=== PATIENT | female | born 1995 | race Caucasian/White ===

== ENCOUNTER 2020-02-04 16:47 | Emergency (ER) | payer MEDICAID, SELFPAY ==
[2020-02-04 17:16] VITALS: BP 105/66; PULSE 94; RESP 14; TEMP 36.5; O2SAT 98; BMI 28.5
--- NOTE | 2020-02-04 18:08 | ED_ITS ---
HPI - Abdominal Pain General: Chief Complaint: Abdominal Pain Stated Complaint: abd pain, preg x 15 weeks Time Seen by Provider: 02/04/20 17:57 Source: patient Mode of arrival: ambulatory Limitations: no limitations History of Present Illness: HPI narrative: 24-year-old female is currently 15 weeks states is been having left lower quadrant abdominal pains for last week to 2 weeks. States episodic in nature and very sharp. She denies any vaginal bleeding. Patient denies any vaginal discharge. This is her first . She has had no vomiting or diarrhea. States she currently has no pain at this point. MD elicited complaint: abdominal pain Associated Symptoms: Denies chills, dysuria and fever(s) Related Data: Date of Last Menstrual Period: 10/14/19 Review of Systems 2 Const: Denies: fever(s), chills, body aches or change in appetite Eyes: Denies: blurry vision or eye discomfort ENMT: Denies: throat pain or dental pain Card: Denies: chest pain Resp: Denies: dyspnea GI: Reports: abdominal pain : Denies: dysuria Musc: Denies: neck pain or back pain Skin/Breast: Denies: rash Neuro: Denies: headache(s) Psych: Denies: depression Ermias/Lymph: Denies: easy bruising All/Imm: Denies: urticaria [facility] Female Reproductive History: Date of last menstrual period: 10/14/19 Physical Exam Const: COMMON NORMALS: no acute distress, patient oriented x3 and healthy appearing HENMT: COMMON NORMALS: normocephalic and atraumatic HEAD & SCALP: normocephalic and atraumatic Eye: COMMON NORMALS: Equal, round and reactive pupils present and EOMs intact bilaterally PUPIL: Yes Equal, round and reactive pupils present Neck/C-Spine: COMMON NORMALS: full ROM and supple Chest: COMMONS NORMALS: normal inspection of the chest and normal palpation of entire chest wall Resp: COMMON NORMALS: normal respiratory effort, No retractions, No use of accessory muscles and clear to auscultation bilaterally AUSCULTATION: clear to auscultation bilaterally Cardio: COMMON NORMALS: regular rate, regular rhythm and No murmurs present (Cardio) RATE: regular rate RHYTHM: regular rhythm GI: COMMON NORMALS: Normal to inspection, nondistended, normoactive bowel sounds present, Soft to palpation, non-tender and no masses PALPATION: Yes Soft to palpation Extremity: COMMON NORMALS: normal to inspection and full ROM Neuro: COMMON NORMALS: patient oriented x3, moves all extremities and no focal motor deficits Psych: COMMON NORMALS: mental status grossly normal, Normal thought process present and cooperative THOUGHT PROCESS: Normal thought process present Skin: COMMON NORMALS: no rashes or lesions noted and no wounds GENERAL SKIN EXAM: no rashes or lesions noted Course Vital Signs: Vital signs: Vital Signs Temperature 97.7 F 02/04/20 17:16 Pulse Rate 94 02/04/20 17:16 Respiratory Rate 14 02/04/20 17:16 Blood Pressure 105/66 02/04/20 17:16 Pulse Oximetry 98 02/04/20 17:16 MDM - Abdominal Pain MDM Narrative: Medical decision making narrative: Patient presents here with left lower abdominal pain is likely round ligament pain. Patient also has UTI. We will treat her with Keflex. She is on Reglan at home. Patient's abdominal exam here is benign and bedside ultrasound showed an IUP consistent with dates with heart rate of 146. She is to follow-up with her OB in 2 to 4 days and return if worsening. Lab Data: Labs: Lab Results 02/04/20 Range/Units 17:55 Urine Color Yellow (Yellow) Urine Appearance Cloudy (CLEAR) Urine pH 6 (5-7) Ur Specific Gravit y 1.020 (1.005-1.030) Urine Protein Neg (Negative) Urine Glucose (UA) Norm (Normal) Urine Ketones Negative (Negative) Urine Blood Neg (Negative) Urine Nitrate Positive H (Negative) Urine Bilirubin Neg (NEGATIVE) Urine Urobilinogen Norm (Negative) mg/dL Ur Leukocyte [place] Negative (Negative) Amorphous Sediment Not Reportable Discharge Plan Discharge Patient Disposition: Home Clinical Impression: Abdominal pain Qualifiers: Abdominal location: left lower quadrant Qualified Code(s): R10.32 - Left lower quadrant pain Acute cystitis Qualifiers: Hematuria presence: without hematuria Qualified Code(s): N30.00 - Acute cystitis without hematuria Condition: Stable Prescriptions: New Keflex 500 mg capsule 500 mg PO Q8H 7 Days Qty: 21 RF: 0 Discharge Orders: Discharge Order (Routine); Ordered 02/04/20 Ordered By: Froilan Cardona Referrals: Trinh Hernandez DO [Primary Care Provider] - 1-3 days Discharge Diet: Advance as tolerated Discharge Activity: Resume usual activity Patient Instructions: Abdominal Pain (ED), Round Ligament Pain Coding Level of Care Code ED Partner Marketing Manager for Chg Fwd Exam Comprehensive
[2020-02-04] MEDS: acetaminophen 325 mg Tablet 650 MG PO (18:10)
[2020-02-04] MEDS: metoclopramide 10 mg Tablet PO (18:11)
[2020-02-04 18:14] LABS: Add Urine Microscopic? YES; Bilirubin Urine Neg (NEGATIVE); Blood Urine Neg (Negative); Glucose Urine UA Norm (Normal); Ketones Urine Negative (Negative); Leukocyte Esterase Urine Negative (Negative); Nitrate Urine Positive (Negative); Protein Urine Neg (Negative); Urine Appearance Cloudy (CLEAR); Urine Color Yellow (Yellow); Urobilinogen Urine Norm (Negative); pH Urine 6 (5-7)
[2020-02-04 18:30] LABS: Add Urine Culture? Yes; Bacteria Urine 4+; Squamous Epithelial Cell Urine 0-4 (0-5)
[2020-02-04 18:37] VITALS: BP 110/66; PULSE 94; RESP 14; TEMP 36.5; O2SAT 98
[2020-02-04] MEDS: cefTRIAXone 1,000 mg SDV 1000 MG IM (18:37)
== END 2020-02-04 18:39 | disposition home or self-care (01) ==
PROVIDERS: Emergency Provider Emergency Medicine; PCP Obstetrics & Gynecology
DX: O23.12 Infections of bladder in pregnancy, second trimester (principal); Z3A.15 15 weeks gestation of pregnancy
CPT/HCPCS: 12345; 81001; 87077; 87086; 87186; 96372; 99281; 99283; J0696; J8597

== ENCOUNTER 2021-09-24 22:01 | Emergency (ER) | payer MEDICAID, SELFPAY ==
[2021-09-24 22:32] VITALS: BP 132/81; PULSE 81; RESP 20; TEMP 36.8; O2SAT 98; BMI 30.4
[2021-09-24 23:55] LABS: HCG Qualitative Urine. Negative (Negative)
--- NOTE | 2021-09-24 23:58 | W.ED.FEMALGU ---
HPI - Female Genitourinary General: Chief complaint: Vaginal Bleeding Stated complaint: Dee birthcontrol is falling out Time Seen by Provider: 09/24/21 22:14 Source: patient Mode of arrival: ambulatory Limitations: no limitations History of Present Illness: 26-year-old female who states she had a Mirena placed 2 years ago. She states she is pulling out a tampon yesterday and felt one of the strings and feels like she is moved her Mirena she states she has had some pain since then and feels like she may have dislodged it. She said some slight bleeding no increase in bleeding denies any vomiting diarrhea denies any vaginal discharge. Associated symptoms: Deny abdominal pain, headache(s) or nausea Date of Last Menstrual Period: 10/14/19 Review of Systems Const: Denies: fever(s), chills, body aches or change in appetite Eyes: Denies: blurry vision or eye discomfort ENMT: Denies: throat pain or dental pain Card: Denies: chest pain Resp: Denies: dyspnea GI: Denies: abdominal pain, nausea, vomiting or diarrhea : Reports: vaginal bleeding Musc: Denies: neck pain or back pain Skin/Breast: Denies: rash Neuro: Denies: headache(s) Psych: Denies: depression Ermais/Lymph: Denies: easy bruising All/Imm: Denies: urticaria PFSH ED PFSH: Medical History (Updated 09/25/21 @ 00:48 by Froilan Cardona MD) No pertinent past medical history Social History Substance/Drug Use: unknown Female Reproductive History: Date of last menstrual period: 10/14/19 Physical Exam Const: COMMON NORMALS: no acute distress, patient oriented x3 and healthy appearing HENMT: COMMON NORMALS: normocephalic and atraumatic HEAD & SCALP: normocephalic and atraumatic Eye: COMMON NORMALS: Equal, round and reactive pupils present and EOMs intact bilaterally PUPIL: Yes Equal, round and reactive pupils present Neck/C-Spine: COMMON NORMALS: full ROM and supple Chest: COMMONS NORMALS: normal inspection of the chest and normal palpation of entire chest wall Resp: COMMON NORMALS: normal respiratory effort, No retractions, No use of accessory muscles and clear to auscultation bilaterally AUSCULTATION: clear to auscultation bilaterally Cardio: COMMON NORMALS: regular rate, regular rhythm and No murmurs present (Cardio) RATE: regular rate RHYTHM: regular rhythm GI: COMMON NORMALS: Normal to inspection, nondistended, normoactive bowel sounds present, Soft to palpation, non-tender and no masses PALPATION: Yes Soft to palpation : OTHER: Slight amount of blood in vaginal vault no active bleeding from cervix Mirena strings in place with no abnormality seen Extremity: COMMON NORMALS: normal to inspection and full ROM Neuro: COMMON NORMALS: patient oriented x3, moves all extremities and no focal motor deficits Psych: COMMON NORMALS: mental status grossly normal, Normal thought process present and cooperative THOUGHT PROCESS: Normal thought process present Skin: COMMON NORMALS: no rashes or lesions noted and no wounds GENERAL SKIN EXAM: no rashes or lesions noted Course Vital Signs: Vital signs: Vital Signs Temperature 98.2 F 09/24/21 22:32 Pulse Rate 81 09/24/21 22:32 Respiratory Rate 20 H 09/24/21 22:32 Blood Pressure 132/81 09/24/21 22:32 Pulse Oximetry 98 09/24/21 22:32 MDM - Female Medical Decision Making Patient presents with pelvic pain for actually months likely due to her Mirena she states she has had issues with her previous Mirena as I did explain to her that we could not take it out in the ER appears to be an appropriate place but we will get her referral with OB to have it removed she has no signs of cervicitis or any other findings noted. Lab Data Laboratory Results HCG, Qual Negative (Negative) 09/24/21 23:46 Urine Color Yellow (Yellow) 09/24/21 23:46 Urine Appearance Clear (CLEAR) 09/24/21 23:46 Urine pH 6 (5-7) 09/24/21 23:46 Ur Specific [place] 1.020 (1.005-1.030) 09/24/21 23:46 Urine Protein Neg (Negative) 09/24/21 23:46 Urine Glucose (UA) Norm (Normal) 09/24/21 23:46 Urine Ketones Negative (Negative) 09/24/21 23:46 Urine Blood 3+ (Negative) H 09/24/21 23:46 Urine Nitrate Negative (Negative) 09/24/21 23:46 Urine Bilirubin Neg (Negative) 09/24/21 23:46 Urine Urobilinogen Norm mg/dL (Negative) 09/24/21 23:46 Ur Leukocyte Esterase Negative (Negative) 09/24/21 23:46 Urine RBC 15-25 /hpf (0-2) H 09/24/21 23:46 Urine WBC 0-4 /hpf (0-5) H 09/24/21 23:46 Ur Squamous Epith Cells 5-10 /hpf (0-5) H 09/24/21 23:46 Amorphous Sediment Not Reportable 09/24/21 23:46 Urine Bacteria Trace /hpf (NONE) 09/24/21 23:46 Urine Mucus 1+ /hpf 09/24/21 23:46 Discharge Plan Discharge Patient Disposition: Home Clinical Impression: Vaginal bleeding Prescriptions: New hydrocodone-acetaminophen 5-325 mg tablet 1 tab PO Q6H PRN (Reason: pain) Qty: 14 0RF Discharge Orders: Discharge ED (Routine); Ordered 09/25/21 Ordered By: Froilan Cardona Referrals: Trinh Hernandez DO [Primary Care Provider] - Discharge Diet: Advance as tolerated Discharge Activity: Resume usual activity Patient Instructions: Abnormal (Dysfunctional) Uterine Bleeding (ED) Coding Level of Care Code ED Senior Security Analyst for Chg Fwd Exam Comprehensive
--- NOTE | 2021-09-25 | USR_ITS ---
PROCEDURE INFORMATION: Exam: US Pelvis Complete, Transabdominal and US Duplex Artery and Vein, Ovaries, Complete Exam date and time: 09/25/2021 12:26 AM Age: 26 years old Clinical indication: Abdominal pain; Lower abdomen; Additional info: Mirena pain TECHNIQUE: Imaging protocol: Real-time transabdominal pelvic ultrasound with image documentation. Real-time duplex ultrasound scan of the arterial and venous flow of the ovaries with B-mode, color Doppler flow and spectral waveform analysis. Complete Pelvis, Complete Duplex. COMPARISON: No relevant prior studies available. FINDINGS: The uterus measures about 7 cm in length. There is no visible focal myometrial mass. Patient reportedly has a known IUD. The IUD is not well visualized on transabdominal imaging, however it appears to be located in the lower uterine segment, near the cervix. It does not appear to lie in the optimal position in the fundus of the uterus. As clinically directed, endovaginal ultrasound or CT could also further evaluate the position of the IUD. There is no intrauterine fluid. Endometrial thickness is 1.7 mm. There is no free pelvic fluid. The right ovary measures 29 x 20 x 28 mm, estimated volume 8.5 cc. The right ovary appears essentially unremarkable. The left ovary measures 30 x 15 x 27 mm, estimated volume 6.6 cc. The left ovary appears essentially unremarkable. Ovarian blood flow was evaluated with color and spectral Doppler imaging. Arterial and venous blood flow detected within each ovary. The urinary bladder was not completely evaluated/imaged at this time. US/US pelvic complete* [id number] IMPRESSION: 1. IUD appears to lie in the lower uterine segment, see above discussion. 2. Otherwise essentially unremarkable sonographic appearance of the uterus and ovaries. 3. Blood flow detected in each ovary. 4. Other details discussed above.
[2021-09-25 00:18] LABS: Add Urine Microscopic? YES; Bilirubin Urine Neg (Negative); Blood Urine 3+ (Negative); Glucose Urine UA Norm (Normal); Ketones Urine Negative (Negative); Leukocyte Esterase Urine Negative (Negative); Nitrate Urine Negative (Negative); Protein Urine Neg (Negative); Urine Appearance Clear (CLEAR); Urine Color Yellow (Yellow); Urobilinogen Urine Norm (Negative); pH Urine 6 (5-7)
[2021-09-25 00:21] LABS: Add Urine Culture? Yes; Bacteria Urine TRACE /hpf; Mucus Urine 1+ /hpf; RBC Urine 15-25 /hpf (0-2); WBC Urine 0-4 /hpf (0-5)
[2021-09-25] MEDS: HYDROcodone-acetaminophen 5-325 mg Tablet 1 TAB PO (00:57)
[2021-09-25 01:00] VITALS: RESP 20
--- NOTE | 2021-09-26 14:06 | DCPLANNER ---
Addendum entered by Josefa Alva 11/04/21 16:46: horse stud manager was told that clinic was unable to reach patient and that a letter was sent to patient to contact clinic to schedule an appointment. Original Note: horse stud manager had message to schedule a follow up appointment for patient with [facility]. horse stud manager sent patients information to the front office staff at [facility]. Patients information will be printed and reviewed. Clinic will call patient with appointment information.
== END 2021-09-25 01:01 | disposition home or self-care (01) ==
PROVIDERS: Emergency Provider Emergency Medicine; PCP Obstetrics & Gynecology
DX: N93.9 Abnormal uterine and vaginal bleeding, unspecified (principal)
CPT/HCPCS: 76856; 81001; 81003; 81025; 87086; 99283

== ENCOUNTER → 2021-12-24 12:19 | Outpatient (BNVA) | payer MEDICAID, SELFPAY | PROVIDERS: PCP Obstetrics & Gynecology; Visit Provider Emergency Medicine | DX: R30.0 Dysuria (principal); B34.9 Viral infection, unspecified | CPT/HCPCS: 81000 ==